=== PATIENT | female | born 1995 | race Caucasian/White ===

== ENCOUNTER 2018-10-20 07:47 | Emergency (ER) | payer BC ==
[2018-10-20 08:01] VITALS: BP 125/76
[2018-10-20] MEDS ORDERED: DUONEB 0.5-3 MG/3 ml Neb IH ONE ×2 (08:05→08:32)
[2018-10-20 08:24] LABS: BASOPHIL % 0.8 % (0.0-0.4); Eosinophil % 11.9 % (0.00-5.0); Eosinophil (Absolute #) 1.56 (0-0.5); Granulocyte Absolute (ANC) 8.03 (1.4-6.9); Granulocytes % 61.5 % (36.0-66.0); Hematocrit 38.4 % (35-47); Hemoglobin 11.9 gm/dl (12.0-16.0); Lymphocyte (Absolute #) 2.28 (1.0-4.6); Lymphocytes % 17.5 % (24.0-44.0); Mean Cell Volume 81.9 fl (78-100); Mean Platelet Volume 10.9 fl (6-9.5); Monocyte (Absolute #) 1.09 (0.0-1.3); Monocytes % 8.3 % (0.0-12.0); Platelet Count 324 K/mm3 (150-450); Red Blood Count 4.69 M/mm3 (4.1-5.4); Red Cell Distribution Width 16.2 % (11.5-14.0); White Blood Count 13.1 K/mm3 (4.0-10.5)
[2018-10-20 08:28] LABS: Mean Corpuscular Hemoglobin 25.3 pg (26-32)
[2018-10-20] MEDS ORDERED: solu-MEDROL 125 MG IV ONE (08:35)
[2018-10-20] MEDS ORDERED: solu-MEDROL 125 MG ONE (08:45)
[2018-10-20 08:47] LABS: ALBUMIN 4.2 g/dL (3.5-5.0); ALKALINE PHOSPHATASE 109 U/L (38-126); BLOOD UREA NITROGEN 19 mg/dL (7-17); CHLORIDE 109 mmol/L (98-107); Calcium 8.9 mg/dL (8.4-10.2); Carbon Dioxide 22 mmol/L (22-30); Creatinine 1 0.71 mg/dL (0.52-1.04); Glucose 109 mg/dL (74-106); SGOT/AST 20 U/L (14-36); SGPT/ALT 16 U/L (0-35); SODIUM 141 mmol/L (137-145); Total Protein 7.4 g/dL (6.3-8.2)
[2018-10-20 08:49] LABS: Potassium 4.2 mmol/L (3.5-5.1)
[2018-10-20 08:54] LABS: INFLUENZA A NEGATIVE (NEGATIVE); INFLUENZA B NEGATIVE (NEGATIVE); RESPIRATORY SYNCTIAL VIRUS NEGATIVE (Negative)
--- NOTE | 2018-10-20 09:34 | XRAY ---
Indication: Short of breath. Cough. Comparison: None PA/lateral chest demonstrates normal heart, lungs, and bony thorax.
--- NOTE | 2018-10-20 09:53 | ERPHSYRPT ---
- History of Present Illness Time Seen by Provider: 10/20/18 08:30 Source: patient Exam Limitations: no limitations Patient Subjective Stated Complaint: coiugh and SOB x 3 days. non productive cough.. denies fever. Triage Nursing Assessment: alert and oriented with c/o cough SOB and it hurts to breathe. audible inspiratory wheezes. staets non productive cough with no fever. Physician History: Pt is a 23 y/o female with h/o Asthma. She stated that for the last three days she was having cough, and wheeze. Now she is feeling, like "my chest is on fire , and I have heaviness". Pt states, had some chills. Fo fever or sweats. Pt denies dysuria, or palpitations. No h/o smoking. Timing/Duration: day(s) (3 days.) Severity of Dyspnea-Current: mild Associated Symptoms: wheezing International travel in last 2 weeks: No Allergies/Adverse Reactions: No Known Drug Allergies Allergy (Unverified 10/20/18 08:02) - Review of Systems Constitutional: Chills, Malaise Eyes: No Symptoms Ears, Nose, & Throat: No Symptoms Respiratory: Cough, Dyspnea, Wheezing Cardiac: No Chest Pain, No Edema, No Syncope Abdominal/Gastrointestinal: No Abdominal Pain, No Nausea, No Vomiting, No Diarrhea Genitourinary Symptoms: No Dysuria Musculoskeletal: No Back Pain, No Neck Pain - Past Medical History Pertinent Past Medical History: Yes Respiratory History: Asthma - Past Surgical History Past Surgical History: No - Social History Smoking Status: Never smoker Exposure to second hand smoke: No Drug Use: none Patient Lives Alone: No - Female History Hx Now: No - Nursing Vital Signs Nursing Vital Signs: Initial Vital Signs Temperature 98.4 F 10/20/18 07:56 Pulse Rate 112 H 10/20/18 07:56 Respiratory Rate 16 10/20/18 07:56 Blood Pressure 125/76 10/20/18 07:56 O2 Sat by Pulse Oximetry 94 L 10/20/18 07:56 Pain Scale Pain Intensity 2 - Physical Exam General Appearance: no apparent distress, alert Eye Exam: PERRL/EOMI Neck Exam: normal inspection, supple Respiratory Exam: prolonged expirations, wheezing Cardiovascular/Chest Exam: normal heart sounds, regular rate/rhythm Abdominal/Gastrointestinal Exam: soft, No tenderness, No distention, No mass Extremity Exam: non-tender, normal range of motion, normal inspection, no calf tenderness, no pedal edema Neurologic Exam: alert, oriented x 3, cooperative, behavioral consultant II-XII nml as tested, sensation nml, No motor deficits Skin Exam: normal color, warm, No dry SpO2 Interpretation: normal SpO2: 99 Oxygen Delivery: Room Air - Radiology Exams Chest X-ray Interpretation: Negative Ordered Tests: Active Orders 24 hr Category Date Time Status CHEST 2 VIEWS (PA AND LAT) Stat Exams 10/20/18 08:07 Completed CBC W DIFF Stat Lab 10/20/18 08:20 Completed CMP Stat Lab 10/20/18 08:20 Results HCG,QUALITATIVE URINE Stat Lab 10/20/18 08:15 Completed Lactic Acid Stat Lab 10/20/18 08:05 Completed Peak Expiratory Flow Rate ONCE RT 10/20/18 08:31 Active Respiratory Nebulizer STAT RT 10/20/18 08:08 Active Respiratory Therapy Assessment DAILY RT 10/20/18 08:30 Active Medication Summary Discontinued Medications Generic Name Dose Route Start Last Admin Trade Name Rustyq PRN Reason Stop Dose Admin Albuterol/Ipratropium 3 ml 10/20/18 08:05 10/20/18 08:35 Duoneb 0.5-3 Mg/3 Ml Neb IH 10/20/18 08:06 3 ml STAT ONE Administration Albuterol/Ipratropium Confirm 10/20/18 08:32 Duoneb 0.5-3 Mg/3 Ml Neb Administered 10/20/18 08:33 Dose 3 ml IH .STK-MED ONE Methylprednisolone Sodium Succinate 125 mg 10/20/18 08:35 10/20/18 08:46 Solu-Medrol 125 Mg IV 10/20/18 08:36 125 mg STAT ONE Administration Methylprednisolone Sodium Succinate Confirm 10/20/18 08:45 Solu-Medrol 125 Mg Administered 10/20/18 08:46 Dose 125 mg .ROUTE .STK-MED ONE Lab/Rad Data: Laboratory Result Diagrams 10/20/18 08:20 10/20/18 08:20 Laboratory Results 10/20/18 10/20/18 10/20/18 Range/Units 08:20 08:20 08:20 WBC 13.1 H (4.0-10.5) K/mm3 RBC 4.69 (4.1-5.4) M/mm3 Hgb 11.9 L (12.0-16.0) gm/dl Hct 38.4 (35-47) % MCV 81.9 (78-100) fl MCH 25.3 L (26-32) pg MCHC 31.0 L (32-36) g/dl RDW 16.2 H (11.5-14.0) % Plt Count 324 (150-450) K/mm3 MPV 10.9 H (6-9.5) fl Gran % 61.5 (36.0-66.0) % Eos # (Auto) 1.56 H (0-0.5) Absolute Lymphs (auto) 2.28 (1.0-4.6) Absolute Monos (auto) 1.09 (0.0-1.3) Lymphocytes % 17.5 L (24.0-44.0) % Monocytes % 8.3 (0.0-12.0) % Eosinophils % 11.9 H (0.00-5.0) % Basophils % 0.8 (0.0-0.4) % Absolute Granulocytes 8.03 H (1.4-6.9) Basophils # 0.10 (0-0.4) Sodium 141 (137-145) mmol/L Potassium 4.2 (3.5-5.1) mmol/L Chloride 109 H (98-107) mmol/L Carbon Dioxide 22 (22-30) mmol/L Anion Gap Pending BUN 19 H (7-17) mg/dL Creatinine 0.71 (0.52-1.04) mg/dL Estimated GFR > 60.0 ML/MIN Glucose 109 H (74-106) mg/dL Lactic Acid (0.4-2.0) Calcium 8.9 (8.4-10.2) mg/dL Total Bilirubin 0.20 (0.2-1.3) mg/dL AST 20 (14-36) U/L ALT 16 (0-35) U/L Alkaline Phosphatase 109 (38-126) U/L Serum Total Protein 7.4 (6.3-8.2) g/dL Albumin 4.2 (3.5-5.0) g/dL Urine HCG, Qual (Negative) Influenza Type A Ag NEGATIVE (NEGATIVE) Influenza Type B Ag NEGATIVE (NEGATIVE) RSV (PCR) NEGATIVE (Negative) 10/20/18 10/20/18 Range/Units 08:15 08:05 WBC (4.0-10.5) K/mm3 RBC (4.1-5.4) M/mm3 Hgb (12.0-16.0) gm/dl Hct (35-47) % MCV (78-100) fl MCH (26-32) pg MCHC (32-36) g/dl RDW (11.5-14.0) % Plt Count (150-450) K/mm3 MPV (6-9.5) fl Gran % (36.0-66.0) % Eos # (Auto) (0-0.5) Absolute Lymphs (auto) (1.0-4.6) Absolute Monos (auto) (0.0-1.3) Lymphocytes % (24.0-44.0) % Monocytes % (0.0-12.0) % Eosinophils % (0.00-5.0) % Basophils % (0.0-0.4) % Absolute Granulocytes (1.4-6.9) Basophils # (0-0.4) Sodium (137-145) mmol/L Potassium (3.5-5.1) mmol/L Chloride (98-107) mmol/L Carbon Dioxide (22-30) mmol/L Anion Gap BUN (7-17) mg/dL Creatinine (0.52-1.04) mg/dL Estimated GFR ML/MIN Glucose (74-106) mg/dL Lactic Acid 1.6 (0.4-2.0) Calcium (8.4-10.2) mg/dL Total Bilirubin (0.2-1.3) mg/dL AST (14-36) U/L ALT (0-35) U/L Alkaline Phosphatase (38-126) U/L Serum Total Protein (6.3-8.2) g/dL Albumin (3.5-5.0) g/dL Urine HCG, Qual NEGATIVE (Negative) Influenza Type A Ag (NEGATIVE) Influenza Type B Ag (NEGATIVE) RSV (PCR) (Negative) - Progress Air Movement: fair Blood Culture(s) Obtained: No Antibiotics given: No - Departure Time of Disposition: 09:55 Departure Disposition: Home Clinical Impression: SOB (shortness of breath) Condition: Stable Critical Care Time: No Referrals: LUCIANO LAMBERT [Primary Care Provider] - Additional Instructions: Finish meds as ordered. Prescriptions: Albuterol 8 gm Mdi Hfa [Ventolin Hfa MDI] 8 gm IH Q4-6HPRN PRN 17 Days #1 hfa.aer.ad PRN Reason: Shortness Of Breath Azithromycin [Zithromax] 250 mg PO UD 5 Days #1 pack Methylprednisolone Packet [Medrol Dosepack] 4 mg PO UD #30 packet
[2018-10-20 10:25] VITALS: PULSE 84; O2SAT 98
== END 2018-10-20 10:22 | disposition home or self-care (01) ==
LOC: ED 07:47
DX: R06.02 Shortness of breath (principal); R05 Cough; R53.81 Other malaise; R06.2 Wheezing
CPT/HCPCS: 36000; 36415; 71046; 80053; 83605; 84703; 85025; 87631; 94150; 94640; 96374; 99284; J2930; A9270-GY

== ENCOUNTER 2019-10-05 09:25 | Emergency (ER) | payer BC, OTHER ==
--- NOTE | 2019-10-05 09:48 | ERPHSYRPT ---
- History of Present Illness Time Seen by Provider: 10/05/19 09:39 Source: patient Exam Limitations: no limitations Patient Subjective Stated Complaint: pt here for decon, she was the transit mixer driver for an employee at the [employer] that had a possible chemical exposure when opning a letter at work Triage Nursing Assessment: pt deconed per protocol, and placed in a room, resp easy , skin w/d/p. pt is 9 weeks , she has no cos at present time Physician History: ultrasound+ again on September 26, 2019 percent with a possible chemical exposure. 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 The patient reportedly drove in another patient via POV who was potential exposed to an unknown chemical. Timing/Duration: today Associated Symptoms: denies symptoms Allergies/Adverse Reactions: No Known Drug Allergies Allergy (Verified 10/05/19 09:44) Home Medications: Vits W-Ca,Fe,FA(<1Mg) [] 1 ea DAILY 10/05/19 [History] Hx Influenza Vaccination/Date Given: No Hx Pneumococcal Vaccination/Date Given: No Immunizations Up to Date: Yes - Review of Systems Constitutional: No Symptoms Eyes: No Symptoms Ears, Nose, & Throat: No Symptoms Respiratory: No Symptoms Cardiac: No Symptoms Abdominal/Gastrointestinal: No Symptoms Genitourinary Symptoms: No Symptoms Musculoskeletal: No Symptoms Skin: No Symptoms Neurological: No Symptoms Psychological: No Symptoms Endocrine: No Symptoms Hematologic/Lymphatic: No Symptoms All Other Systems: Reviewed and Negative - Past Medical History Pertinent Past Medical History: Yes Respiratory History: Asthma - Past Surgical History Past Surgical History: No - Social History Smoking Status: Never smoker Exposure to second hand smoke: No Drug Use: none Patient Lives Alone: No - Female History Hx Last Menstrual Period: jul Hx Now: Yes Gestational Age: 9 weeks - Nursing Vital Signs Nursing Vital Signs: Initial Vital Signs Temperature 98.8 F 10/05/19 09:35 Pulse Rate 88 10/05/19 09:35 Respiratory Rate 16 10/05/19 09:35 Blood Pressure 111/73 10/05/19 09:35 O2 Sat by Pulse Oximetry 97 10/05/19 09:35 Pain Scale Pain Intensity 0 - Physical Exam General Appearance: no apparent distress, alert Eye Exam: PERRL/EOMI, eyes nml inspection, No scleral icterus, No pale conjunctivae Ears, Nose, Throat Exam: normal ENT inspection, moist mucous membranes, No pharyngeal erythema, No tonsillar exudate Neck Exam: normal inspection, midline tenderness, No non-tender, No supple Respiratory Exam: normal breath sounds, lungs clear, airway intact, prolonged expirations, No chest tenderness, No respiratory distress, No diminished breath sounds, No accessory muscle use Cardiovascular Exam: regular rate/rhythm, normal heart sounds, No murmur, No friction rub, No gallop, No tachycardia Gastrointestinal/Abdomen Exam: soft, No tenderness, No distention Pelvic Exam: not done Back Exam: normal inspection Extremity Exam: normal inspection Neurologic Exam: alert, oriented x 3, cooperative Skin Exam: normal color, warm, dry, No rash, No petechiae, No jaundice, No jaundice SpO2 Interpretation: normal SpO2: 97 O2 Delivery: Room Air - Course Nursing assessment & vital signs reviewed: Yes - Progress Progress: unchanged Counseled pt/family regarding: diagnosis, need for follow-up - Departure Departure Disposition: Home Clinical Impression: Encounter for medical screening examination Condition: Stable Referrals: LUCIANO LAMBERT [Primary Care Provider] - Instructions: Chemical Exposure to the Skin (DC) Additional Instructions: Please follow-up with your drapery inspector as scheduled tomorrow, 10/06/19.
[2019-10-05 11:05] VITALS: BP 129/78
[2019-10-05 12:17] VITALS: PULSE 78; O2SAT 98
== END 2019-10-05 12:17 | disposition home or self-care (01) ==
LOC: ED 09:25
DX: Z77.9 Other contact with and (suspected) exposures hazardous to health (principal); X58.XXXA Exposure to other specified factors, initial encounter; Y92.149 Unspecified place in prison as the place of occurrence of the external cause
CPT/HCPCS: 99283

== ENCOUNTER 2019-12-13 05:47 | Observation (INO) | payer BC, OTHER ==
[2019-12-13 08:24] LABS: Amphetamine,Urine NEGATIVE (NEGATIVE); Barbiturate,Urine NEGATIVE (NEGATIVE); Benzodiazepine,Urine NEGATIVE (NEGATIVE); Cocaine,Urine NEGATIVE (NEGATIVE); Methadone,Urine NEGATIVE (NEGATIVE); Opiate,Urine NEGATIVE (NEGATIVE); PCP,Urine NEGATIVE (NEGATIVE); THC,Urine NEGATIVE (NEGATIVE)
[2019-12-13 08:26] LABS: Appearance CLEAR (CLEAR); Bilirubin NEGATIVE (NEGATIVE); Blood NEGATIVE Ery/ul (0-5); Glucose NEGATIVE (NEGATIVE); Ketones NEGATIVE (NEGATIVE); Leukocyte Esterase NEGATIVE (NEGATIVE); Mucus SLIGHT /HPF (NEGATIVE); Nitrite NEGATIVE (NEGATIVE); Protein,Urine Dip NEGATIVE (Negative); Specific Gravity 1.019 (1.005-1.025); Urobilinogen NEGATIVE mg/dL (0-1); WBC 0-2 /HPF (0-5)
[2019-12-13 08:27] LABS: Bacteria RARE /HPF (NEGATIVE); Epithelial Cells RARE /HPF (FEW); RBC 0-2 /HPF (0-2)
[2019-12-13] MEDS ORDERED: Lactated Ringers 500 ML IV ONE (08:34)
[2019-12-13 09:39] LABS: Absolute Neutrophil Ct (ANC) 9.31 (1.4-6.9); BASOPHIL % 0.4 % (0.0-0.4); Basophil (Absolute #) 0.05 (0-0.4); Eosinophil % 5.7 % (0.00-5.0); Eosinophil (Absolute #) 0.79 (0-0.5); Hematocrit 33.1 % (35-47); Hemoglobin 10.3 gm/dl (12.0-16.0); Lymphocyte (Absolute #) 2.84 (1.0-4.6); Lymphocytes % 20.5 % (24.0-44.0); Mean Cell Volume 85.8 fl (78-100); Mean Corpuscular Hemoglobin 26.7 pg (26-32); Mean Corpuscular Hgb Concent. 31.1 g/dl (32-36); Mean Platelet Volume 11.3 fl (7.5-11.0); Monocyte (Absolute #) 0.86 (0.0-1.3); Monocytes % 6.2 % (0.0-12.0); Neutrophil % 67.2 % (36.0-66.0); Platelet Count 275 K/mm3 (150-450); Red Blood Count 3.86 M/mm3 (4.1-5.4); Red Cell Distribution Width 15.3 % (11.5-14.0); White Blood Count 13.9 K/mm3 (4.0-10.5)
[2019-12-13] MEDS ORDERED: ROCEPHIN 1 Gm-D5w 50 ml Bag** 1 G/50 ML IVPB IV SCH (10:00)
--- NOTE | 2019-12-13 10:13 | XRAY ---
Indication: Pain. Two-dimensional OB ultrasound performed. Comparison: None There is a single viable intrauterine currently in breech presentation. Normal four-chamber heart with heart rate 147 BPM. Normal three-vessel cord and cord insertion. Visualized spine, stomach, kidneys, and bladder are unremarkable. Anterior placenta without abruption/previa. Cervical length measures 3.3 cm. BPD measures 4.51 cm corresponding to 19 weeks 4 days. HC measures 16.40 cm corresponding to 19 weeks 1 day. AC measures 13.53 cm corresponding to 19 weeks 0 day. FL measures 2.87 cm corresponding to 18 weeks 6 days. KRYSTAL is 13.4 cm. Impression: Single viable intrauterine with mean gestational age 19 weeks 1 day. Expected date confinement is May 07, 2020.
[2019-12-13] MEDS: Lactated Ringers 500 ML IV SCH ×2 (10:32→12:01)
[2019-12-13 11:31] VITALS: BP 116/81; PULSE 84
[2019-12-13 18:27] LABS: CHLAMYDIA DNA NEGATIVE (NEGATIVE); GC DNA Probe NEGATIVE (NEGATIVE)
== END 2019-12-13 13:10 | disposition home or self-care (01) ==
LOC: EDSTATUS 05:59 → EEVIPCON 06:02 → OB 06:02
PROVIDERS: ADMIT Obstetrics & Gynecology; ATTEND Obstetrics & Gynecology
DX: Z34.82 Encounter for supervision of other normal pregnancy, second trimester (principal)
CPT/HCPCS: 36415; 76805; 80307; 81001; 85025; 87086; 87491; 87591; G0378; J0696

== ENCOUNTER 2020-03-06 07:30 | Observation (INO) | payer BC ==
[2020-03-06 08:25] VITALS: PULSE 82
[2020-03-06 08:26] LABS: Appearance SLIGHTLY CLOUDY (CLEAR); Bacteria MODERATE /HPF (NEGATIVE); Bilirubin NEGATIVE (NEGATIVE); Blood NEGATIVE Ery/ul (0-5); Epithelial Cells RARE /HPF (FEW); Glucose NEGATIVE (NEGATIVE); Hyaline Casts 0-2 /LPF (0-2); Ketones NEGATIVE (NEGATIVE); Leukocyte Esterase SMALL (NEGATIVE); Mucus SLIGHT /HPF (NEGATIVE); Nitrite NEGATIVE (NEGATIVE); Protein,Urine Dip NEGATIVE (Negative); RBC 0-2 /HPF (0-2); Specific Gravity 1.024 (1.005-1.025); Urobilinogen 2 mg/dL (0-1)
[2020-03-06 08:33] LABS: Amphetamine,Urine NEGATIVE (NEGATIVE); Barbiturate,Urine NEGATIVE (NEGATIVE); Benzodiazepine,Urine NEGATIVE (NEGATIVE); Cocaine,Urine NEGATIVE (NEGATIVE); Methadone,Urine NEGATIVE (NEGATIVE); Opiate,Urine NEGATIVE (NEGATIVE); PCP,Urine NEGATIVE (NEGATIVE); THC,Urine NEGATIVE (NEGATIVE)
[2020-03-06] MEDS ORDERED: Lactated Ringers 1,000 ML IV ONE (08:59)
[2020-03-06] MEDS ORDERED: ROCEPHIN 1 Gm-D5w 50 ml Bag** 1 G/50 ML IVPB IV SCH (10:00)
[2020-03-06 11:34] LABS: Absolute Neutrophil Ct (ANC) 10.22 (1.4-6.9); BASOPHIL % 0.3 % (0.0-0.4); Basophil (Absolute #) 0.04 (0-0.4); Eosinophil % 3.3 % (0.00-5.0); Eosinophil (Absolute #) 0.45 (0-0.5); Hematocrit 30.9 % (35-47); Hemoglobin 9.5 gm/dl (12.0-16.0); Lymphocyte (Absolute #) 2.18 (1.0-4.6); Lymphocytes % 16.1 % (24.0-44.0); Mean Cell Volume 83.1 fl (78-100); Mean Corpuscular Hemoglobin 25.5 pg (26-32); Mean Corpuscular Hgb Concent. 30.7 g/dl (32-36); Mean Platelet Volume 11.3 fl (7.5-11.0); Monocyte (Absolute #) 0.67 (0.0-1.3); Monocytes % 4.9 % (0.0-12.0); Neutrophil % 75.4 % (36.0-66.0); Platelet Count 337 K/mm3 (150-450); Red Blood Count 3.72 M/mm3 (4.1-5.4); Red Cell Distribution Width 14.3 % (11.5-14.0); White Blood Count 13.6 K/mm3 (4.0-10.5)
[2020-03-06 12:32] VITALS: BP 108/61
[2020-03-06 12:35] LABS: BAND 4 % (0.0-2.0); Eosinophil 2 % (0.00-3.0); Lymphocytes 10 % (24-44); Monocyte 2 % (0.0-12.0); Neutrophils 82 % (36.0-66.0); Platelet Estimate NORMAL (NORMAL); Total Cells Counted 100
== END 2020-03-06 12:15 | disposition home or self-care (01) ==
LOC: OB 07:30
PROVIDERS: ADMIT Obstetrics & Gynecology; ATTEND Obstetrics & Gynecology
DX: Z34.83 Encounter for supervision of other normal pregnancy, third trimester (principal)
CPT/HCPCS: 36415; 80307; 81001; 84112; 85025; 87086; G0378; J0696

== ENCOUNTER 2020-04-04 09:42 | Observation (INO) | payer BC ==
[2020-04-04 14:48] LABS: Appearance SLIGHTLY CLOUDY (CLEAR); Leukocyte Esterase SMALL (NEGATIVE); Nitrite NEGATIVE (NEGATIVE); Protein,Urine Dip NEGATIVE (Negative); Specific Gravity 1.023 (1.005-1.025)
[2020-04-04 14:49] LABS: Bilirubin NEGATIVE (NEGATIVE); Blood NEGATIVE Ery/ul (0-5); Glucose NEGATIVE (NEGATIVE); Ketones NEGATIVE (NEGATIVE); Mucus SLIGHT /HPF (NEGATIVE); Urobilinogen NORMAL mg/dL (0-1)
== END 2020-04-04 12:45 | disposition home or self-care (01) ==
LOC: OB 09:42
PROVIDERS: ADMIT Obstetrics & Gynecology; ATTEND Obstetrics & Gynecology
DX: Z34.83 Encounter for supervision of other normal pregnancy, third trimester (principal)
CPT/HCPCS: 81001; G0378

== ENCOUNTER 2020-04-17 14:22 | Observation (INO) | payer BC ==
[2020-04-17 15:43] LABS: Appearance SLIGHTLY CLOUDY (CLEAR); Bacteria FEW /HPF (NEGATIVE); Bilirubin NEGATIVE (NEGATIVE); Blood NEGATIVE Ery/ul (0-5); Epithelial Cells RARE /HPF (FEW); Glucose NEGATIVE (NEGATIVE); Ketones NEGATIVE (NEGATIVE); Leukocyte Esterase TRACE (NEGATIVE); Mucus SLIGHT /HPF (NEGATIVE); Nitrite NEGATIVE (NEGATIVE); Protein,Urine Dip NEGATIVE (Negative); RBC 0-2 /HPF (0-2); Specific Gravity 1.024 (1.005-1.025); Urobilinogen 2 mg/dL (0-1)
[2020-04-17 16:14] VITALS: BP 117/68; PULSE 96
== END 2020-04-17 16:40 | disposition home or self-care (01) ==
LOC: OB 14:22
PROVIDERS: ADMIT Obstetrics & Gynecology; ATTEND Obstetrics & Gynecology
DX: Z34.83 Encounter for supervision of other normal pregnancy, third trimester (principal)
CPT/HCPCS: 59025; 81001; G0378

== ENCOUNTER 2020-04-24 09:17 | Inpatient (IN) | payer BC ==
[2020-04-24] MEDS ORDERED: PITOCIN 30 UNITS/ LR 500 ML 30 UNITS/500 ML IV.SOLN. IV SCH ×2 (10:00)
[2020-04-24 10:06] LABS: Appearance SLIGHTLY CLOUDY (CLEAR); Bilirubin NEGATIVE (NEGATIVE); Blood SMALL Ery/ul (0-5); Glucose NEGATIVE (NEGATIVE); Hematocrit 28.8 % (35-47); Hemoglobin 8.4 gm/dl (12.0-16.0); Ketones NEGATIVE (NEGATIVE); Leukocyte Esterase SMALL (NEGATIVE); Mean Cell Volume 79.6 fl (78-100); Mean Corpuscular Hemoglobin 23.2 pg (26-32); Mean Corpuscular Hgb Concent. 29.2 g/dl (32-36); Mean Platelet Volume 10.8 fl (7.5-11.0); Mucus SLIGHT /HPF (NEGATIVE); Nitrite NEGATIVE (NEGATIVE); Platelet Count 347 K/mm3 (150-450); Protein,Urine Dip NEGATIVE (Negative); Red Blood Count 3.62 M/mm3 (4.1-5.4); Specific Gravity 1.015 (1.005-1.025); Urobilinogen NEGATIVE mg/dL (0-1); WBC 0-2 /HPF (0-5); White Blood Count 13.1 K/mm3 (4.0-10.5)
[2020-04-24] MEDS: Lactated Ringers 1,000 ML IV SCH ×2 (10:30→15:56)
[2020-04-24] MEDS ORDERED: Lactated Ringers 1,000 ML IV ONE (10:43)
[2020-04-24] MEDS ORDERED: Ephedrine Sulfate 50 MG/ML IV PRN (10:43)
[2020-04-24] MEDS ORDERED: OB EPIDURAL NAROPIN/SUFENTANIL IN NACL EPIDURAL PRN (10:43)
[2020-04-24 11:34] LABS: BAND 3 % (0.0-2.0); Eosinophil 6 % (0.00-3.0); Lymphocytes 18 % (24-44); Monocyte 7 % (0.0-12.0); Neutrophils 66 % (36.0-66.0); Total Cells Counted 100
[2020-04-24 11:41] LABS: Platelet Estimate NORMAL (NORMAL)
[2020-04-24 11:42] LABS: ANISOCYTOSIS 1+; Hypochromia 2+; Microcytosis 1+; Polychromasia 1+; Toxic Granulation 1+
[2020-04-24] MEDS ORDERED: Dermoplast Spray TP PRN (14:54)
[2020-04-24] MEDS ORDERED: CORTISONE 1% CREAM TP PRN (14:54)
[2020-04-24] MEDS ORDERED: Anucort-HC SUPPOSITORY PR PRN (14:54)
[2020-04-24] MEDS ORDERED: Dulcolax 10 MG SUPP PR PRN (14:54)
[2020-04-24] MEDS ORDERED: Mylicon 80MG PO PRN (14:54)
[2020-04-24] MEDS ORDERED: TUCKS TP PRN (14:54)
[2020-04-24] MEDS ORDERED: TYLENOL EXTRA STRENGTH 500 MG PO PRN (14:54)
[2020-04-24] MEDS ORDERED: Ambien 10 MG PO PRN (14:54)
[2020-04-24] MEDS ORDERED: LANSINOH 40 GM TOP PRN (14:54)
[2020-04-24 16:12] LABS: Amphetamine,Urine NEGATIVE (NEGATIVE); Barbiturate,Urine NEGATIVE (NEGATIVE); Benzodiazepine,Urine NEGATIVE (NEGATIVE); Cocaine,Urine NEGATIVE (NEGATIVE); Methadone,Urine NEGATIVE (NEGATIVE); Opiate,Urine NEGATIVE (NEGATIVE); PCP,Urine NEGATIVE (NEGATIVE); THC,Urine NEGATIVE (NEGATIVE)
[2020-04-24] MEDS ORDERED: Adacel Vial IM ONE (18:00)
[2020-04-24] MEDS: MOTRIN 400 MG PO PRN (22:01)
[2020-04-24] MEDS: Colace 100 MG PO SCH (22:02)
[2020-04-25 05:15] LABS: Absolute Neutrophil Ct (ANC) 11.25 (1.4-6.9); BASOPHIL % 0.3 % (0.0-0.4); Basophil (Absolute #) 0.04 (0-0.4); Eosinophil % 3.1 % (0.00-5.0); Eosinophil (Absolute #) 0.49 (0-0.5); Hematocrit 26.7 % (35-47); Hemoglobin 7.8 gm/dl (12.0-16.0); Lymphocyte (Absolute #) 2.76 (1.0-4.6); Lymphocytes % 17.4 % (24.0-44.0); Mean Cell Volume 79.7 fl (78-100); Mean Corpuscular Hemoglobin 23.3 pg (26-32); Mean Corpuscular Hgb Concent. 29.2 g/dl (32-36); Mean Platelet Volume 11.4 fl (7.5-11.0); Monocyte (Absolute #) 1.33 (0.0-1.3); Monocytes % 8.4 % (0.0-12.0); Neutrophil % 70.8 % (36.0-66.0); Platelet Count 304 K/mm3 (150-450); Red Blood Count 3.35 M/mm3 (4.1-5.4); Red Cell Distribution Width 15.8 % (11.5-14.0); White Blood Count 15.9 K/mm3 (4.0-10.5)
[2020-04-25] MEDS: MOTRIN 400 MG PO PRN ×2 (07:26→13:35)
[2020-04-25] MEDS: FERREX 150 PO SCH (10:27)
[2020-04-25] MEDS: Colace 100 MG PO SCH ×2 (10:27→22:12)
--- NOTE | 2020-04-25 11:10 | PCM.NOTE ---
Date and Time: 04/25/20 1108 Subjective Assessment: PPD 1 SP PT RESTING IN BED AND DOING WELL WITHOUT COMPLAINTS VSS AFEBRILE ABD; SOFT UTERUS; FIRM LOCHIA; MILD UTERUS; FIRM LOCHIA;MILD HGB; 7.8 A/P SP PPD 1 PT STABLE ANTICIPATE DISHCARGE HOME TOMORROW FU OFFICE IN 6 WKS. OBJECTIVE DATA Vital Signs: Vital Signs - 24 hr Temp Pulse Resp BP BP 04/25/20 06:00 98.3 F 86 18 112/59 04/24/20 19:30 98.3 F 95 H 18 116/58 04/24/20 18:00 98.7 F 98 H 18 112/63 04/24/20 16:00 66 18 116/69 04/24/20 15:00 83 20 119/65 04/24/20 14:45 105 H 20 127/59 04/24/20 14:19 20 04/24/20 14:15 98.1 F 91 H 20 116/55 04/24/20 14:00 98.1 F 97 H 20 115/74 04/24/20 13:45 98.1 F 84 20 103/56 04/24/20 13:30 98.1 F 77 20 101/57 04/24/20 13:15 98.1 F 77 20 101/57 04/24/20 13:00 98.1 F 76 20 97/56 04/24/20 12:45 77 20 104/60 04/24/20 12:30 82 20 105/56 04/24/20 12:15 82 20 107/62 04/24/20 12:00 81 20 105/52 04/24/20 11:30 20 Pain Assessment - Last Documented Pain Intensity [Medial] 3 Pain Intensity 5 Pain Scale Used [facility] Intake and Output: Intake & Output 04/22/20 04/23/20 04/24/20 04/25/20 11:59 11:59 11:59 11:59 Intake Total 3885 Balance 3885 Weight 96.615 kg Lab Results: Lab Results-Last 24 Hours 04/24/20 04/24/20 04/25/20 Range/Units 09:25 09:35 04:15 WBC 15.9 H (4.0-10.5) K/mm3 RBC 3.35 L (4.1-5.4) M/mm3 Hgb 7.8 L (12.0-16.0) gm/dl Hct 26.7 L (35-47) % MCV 79.7 (78-100) fl MCH 23.3 L (26-32) pg MCHC 29.2 L (32-36) g/dl RDW 15.8 H (11.5-14.0) % Plt Count 304 (150-450) K/mm3 MPV 11.4 H (7.5-11.0) fl Gran % 70.8 H (36.0-66.0) % Eos # (Auto) 0.49 (0-0.5) Absolute Lymphs (auto) 2.76 (1.0-4.6) Absolute Monos (auto) 1.33 H (0.0-1.3) Lymphocytes % 17.4 L (24.0-44.0) % Monocytes % 8.4 (0.0-12.0) % Eosinophils % 3.1 (0.00-5.0) % Basophils % 0.3 (0.0-0.4) % Absolute Granulocytes 11.25 H (1.4-6.9) Segmented Neutrophils 66 (36.0-66.0) % Band Neutrophils 3 H (0.0-2.0) % Lymphocytes (Manual) 18 L (24-44) % Monocytes (Manual) 7 (0.0-12.0) % Eosinophils (Manual) 6 H (0.00-3.0) % Basophils # 0.04 (0-0.4) Hypochromia 2+ Toxic Granulation 1+ Platelet Estimate NORMAL (NORMAL) RBC Morphology ABNORMAL Polychromasia 1+ Anisocytosis 1+ Microcytosis 1+ Urine Opiates Level NEGATIVE (NEGATIVE) Ur Methadone NEGATIVE (NEGATIVE) Urine Barbiturates NEGATIVE (NEGATIVE) Ur Phencyclidine (PCP) NEGATIVE (NEGATIVE) Urine Amphetamine NEGATIVE (NEGATIVE) U Benzodiazepine Level NEGATIVE (NEGATIVE) Urine Cocaine NEGATIVE (NEGATIVE) Urine Marijuana (THC) NEGATIVE (NEGATIVE)
--- NOTE | 2020-04-25 11:14 | PCM.DCORD ---
- Discharge Disposition: Home, Self-Care Condition: Stable Prescriptions: No Action Vits W-Ca,Fe,FA(<1Mg) [] 1 ea PO DAILY Follow up with: STEVEN TREVIZO DO [Primary Care Provider] - 06/07/20
--- NOTE | 2020-04-25 11:19 | PCM.DS ---
Discharge Summary Date of Admission: 04/24/20 10:30 Date of Discharge: APRIL 26, 2020 Admitting Physician: STEVEN TREVIZO DO Consults: Consults on Case 04/24/20 14:54 Notify Physician PRN Primary Care Provider: STEVEN TREVIZO DO Allergies Allergies No Known Drug Allergies Allergy (Verified 04/24/20 18:15) Hospital Summary - Hospital Course Hospital Course: PT ADMITED ON MARCH 25 FOR PITOCIN INDUCTION AT 38 5/7 WKS GESTATION BECAUSE OF NOTED OLIGOHYDRAMNIOS FROM ULTRASOUND IN OFFICE. PT HAD CO LEAKING FLUID SINCE LAST FRIDAY AND KRYSTAL DONE IN OFFICE NOTED BEING APPROXIMATELY 5. PT STATES IRREGULAR CONTX ONCE IN OFFICE. PT WAS SENT TO LABOR AND DELIVERY AND PITOCIN WAS STARTED AND PT SUBSEQUENTLY DELIVERED LIVE BABY GIRL WITHOUT COMPLICATION AT 1419. AT THIS TIME PT IS STABLE FOR DISCHARGE ON APRIL 26 AND STATES HAVING ALREADY IBUPROFEN AT HOME FOR PELVIC CRAMPING. PT NOTED HAVING HGB AT 7.8 AND WAS ADVISED TO TAKE IRON SUPPLEMENTATION TWICE DAILY FOR A MONTHS AND FU IN OFFICE IN 6 WKS. ALL QUESTIONS ANSWERED TO HER SATISFACTION AT THIS TIME. - Vitals & Intake/Output Vital Signs: Vital Signs Temperature 98.3 F 04/25/20 06:00 Pulse Rate 86 04/25/20 06:00 Respiratory Rate 18 04/25/20 06:00 Blood Pressure 112/59 04/25/20 06:00 O2 Sat by Pulse Oximetry Intake & Output: Intake & Output 04/22/20 04/23/20 04/24/20 04/25/20 11:59 11:59 11:59 11:59 Intake Total 3885 Balance 3885 Weight 96.615 kg - Lab Result Diagrams: 04/25/20 04:15 Lab Results-Last 24 Hrs: Lab Results-Last 24 Hours 04/24/20 04/24/20 04/25/20 Range/Units 09:25 09:35 04:15 WBC 15.9 H (4.0-10.5) K/mm3 RBC 3.35 L (4.1-5.4) M/mm3 Hgb 7.8 L (12.0-16.0) gm/dl Hct 26.7 L (35-47) % MCV 79.7 (78-100) fl MCH 23.3 L (26-32) pg MCHC 29.2 L (32-36) g/dl RDW 15.8 H (11.5-14.0) % Plt Count 304 (150-450) K/mm3 MPV 11.4 H (7.5-11.0) fl Gran % 70.8 H (36.0-66.0) % Eos # (Auto) 0.49 (0-0.5) Absolute Lymphs (auto) 2.76 (1.0-4.6) Absolute Monos (auto) 1.33 H (0.0-1.3) Lymphocytes % 17.4 L (24.0-44.0) % Monocytes % 8.4 (0.0-12.0) % Eosinophils % 3.1 (0.00-5.0) % Basophils % 0.3 (0.0-0.4) % Absolute Granulocytes 11.25 H (1.4-6.9) Segmented Neutrophils 66 (36.0-66.0) % Band Neutrophils 3 H (0.0-2.0) % Lymphocytes (Manual) 18 L (24-44) % Monocytes (Manual) 7 (0.0-12.0) % Eosinophils (Manual) 6 H (0.00-3.0) % Basophils # 0.04 (0-0.4) Hypochromia 2+ Toxic Granulation 1+ Platelet Estimate NORMAL (NORMAL) RBC Morphology ABNORMAL Polychromasia 1+ Anisocytosis 1+ Microcytosis 1+ Urine Opiates Level NEGATIVE (NEGATIVE) Ur Methadone NEGATIVE (NEGATIVE) Urine Barbiturates NEGATIVE (NEGATIVE) Ur Phencyclidine (PCP) NEGATIVE (NEGATIVE) Urine Amphetamine NEGATIVE (NEGATIVE) U Benzodiazepine Level NEGATIVE (NEGATIVE) Urine Cocaine NEGATIVE (NEGATIVE) Urine Marijuana (THC) NEGATIVE (NEGATIVE) Micro Results-Entire Visit: Microbiology 04/24/20 Unknown Urine Culture - Preliminary Urine, Void NO GROWTH TO DATE 04/24/20 09:35 Urine Culture - Preliminary Urine, Void NO GROWTH TO DATE - Discharge Disposition: Home, Self-Care Condition: Stable Prescriptions: No Action Vits W-Ca,Fe,FA(<1Mg) [] 1 ea PO DAILY Follow up with: STEVEN TREVIZO DO [Primary Care Provider] - 06/07/20
[2020-04-25 12:53] VITALS: O2SAT 98
[2020-04-26] MEDS: MOTRIN 400 MG PO PRN ×2 (00:32→12:03)
[2020-04-26 11:04] VITALS: BP 110/65; PULSE 100
[2020-04-26] MEDS: FERREX 150 PO SCH (12:03)
[2020-04-26] MEDS: Colace 100 MG PO SCH (12:03)
== END 2020-04-26 15:15 | disposition home or self-care (01) | DRG 807 ==
LOC: OB 09:17 → OBSVTOIN 10:30 → OB 10:30
PROVIDERS: ADMIT Obstetrics & Gynecology; ATTEND Obstetrics & Gynecology
PROC: 10E0XZZ Delivery of Products of Conception, External Approach (ICD-10-PCS; principal; 2020-04-24)
DX: O42.12 Full-term premature rupture of membranes, onset of labor more than 24 hours following rupture (principal); Z37.0 Single live birth; Z3A.38 38 weeks gestation of pregnancy
CPT/HCPCS: 36415; 59400; 80307; 81001; 85025; 87086; 90471; 90715; G0378; J2590; J2795; A9270-GY